=== PATIENT | female | born 1960 | race Caucasian/White ===

== ENCOUNTER 2022-09-03 11:36 | Inpatient (IN) | payer OTHER ==
[2022-09-03 12:24] LABS: SARS-CoV-2 Antigen Rapid Res Negative (Negative)
--- NOTE | 2022-09-03 15:05 | P.HP ---
Certification for Inpatient Patient admitted to: Inpatient Patient will require the following post-hospital care: None Practitioner: I am a practitioner with admitting privileges, knowledge of patient current condition, hospital course, and medical plan of care. Services: Services provided to patient in accordance with Admission requirements found in Title 42 Section 412.3 of the Code of Federal Regulations Patient History Date of Service: 09/03/22 Primary Care Provider: Barry Puga Reason for admission: chf exacerbation History of Present Illness: Patient is an office patient of Angelita Puga. The patient has a history of chf, atrial fib, htn, and hypothyroidism. She had come to office a week ago. She has gained 48 lbs since February. Despite being on entresto and lasix. Labs were ordered. The patients creatine had risen from 1 to 1.5. She has poor energy and sob on exertion. The physical exam was difficulty Could not hear any crepitations,. However her body habitus makes for difficult exam. Given the above factors she was admitted for diuresis Allergies No Known Allergies Allergy (Verified 09/03/22 13:53) Home Medications: Amiodarone HCl [Cordarone Tab] 200 mg PO DAILY 09/03/22 Apixaban [Eliquis] 5 mg PO BID 09/03/22 Atorvastatin Calcium 20 mg PO DAILY AFTER SUPPER 09/03/22 Furosemide 40 mg PO BID 09/03/22 Meloxicam 15 mg PO DAILY 09/03/22 Metoprolol Succinate [Toprol Xl] 100 mg PO DAILY 09/03/22 Nabumetone 500 mg PO BID 09/03/22 Nystatin [Nystop] 30 gm TOP TID PRN 09/03/22 Potassium Chloride 20 meq PO DAILY 09/03/22 Sacubitril/Valsartan [Entresto 49 mg-51 mg Tablet] 1 tab PO BID 09/03/22 Silver Sulfadiazine [Silvadene 1% Cream] 1 appl TOP BID 09/03/22 methIMAzole [Tapazole*] 2 tab PO DAILY 09/03/22 - Past Medical/Surgical History Diabetic: No -: CHF -: Hypertension -: Graves disease -: Uterus ablation -: Cyst removal R breast - Family History Mother -: Diabetes, Cancer Notes: breast cancer Father -: Heart disease, Hypertension, Diabetes, Other (see notes) Notes: glaucoma, blind Brother -: Heart disease Notes: from heart attack - Social History Smoking Status: Never smoker Alcohol use: No CD- Drugs: No Caffeine use: Yes Place of Residence: Home Review of Systems 10-point ROS is otherwise unremarkable General: Malaise Respiratory: Shortness of Breath Physical Examination - Vital Signs Temperature: 97.8 F Blood Pressure: 126/58 Pulse: 76 Respirations: 18 Pulse Ox (%): 98 - Physical Exam General: Alert, In no apparent distress HEENT: Atraumatic, PERRLA, Mucous membr. moist/pink, EOMI, Sclerae nonicteric Neck: Supple, 2+ carotid pulse no bruit, No LAD, Without JVD or thyroid abnormality Respiratory: Clear to auscultation bilaterally, Normal air movement Cardiovascular: Regular rate/rhythm, Normal S1 S2 Gastrointestinal: Normal bowel sounds, No tenderness Musculoskeletal: No tenderness Integumentary: No rashes Neurological: Normal gait, Normal speech, Normal strength at 5/5 x4 extr, Normal tone, Normal affect Lymphatics: No axilla or inguinal lymphadenopathy Assessment and Plan - Problems (Diagnosis) (1) Acute exacerbation of CHF (congestive heart failure) Current Visit: Yes Status: Acute Plan: will admit her to the hospital. Start aggressive diuresis. consult cardiology and check an echocardiogram. Will need to monitor her creatine. The patient has after the last 6 months Qualifiers: Heart failure type: systolic Qualified Code(s): I50.23 - Acute on chronic systolic (congestive) heart failure (2) Atrial fibrillation Current Visit: Yes Status: Chronic Plan: Continue metoprolol. Will check tsh. She seems to be rate controlled Qualifiers: Atrial fibrillation type: paroxysmal Qualified Code(s): I48.0 - Paroxysmal atrial fibrillation (3) HTN (hypertension) Current Visit: Yes Status: Acute Plan: continue entresto and metoprolol. Adjust as necessary Qualifiers: Hypertension type: primary hypertension Qualified Code(s): I10 - Essential (primary) hypertension (4) Hyperthyroidism Current Visit: Yes Status: Acute Plan: Check tsh and thyroid labs. Continue metimazole (5) Acute renal failure Current Visit: Yes Status: Acute Plan: Most likely prerenal due to diurseis. Will continue her lasix. however may need to consult nephrology Qualifiers: Acute renal failure type: unspecified Qualified Code(s): N17.9 - Acute kidney failure, unspecified Discharge Plan: Home Plan to discharge in: 48 Hours - Advance Directives Does patient have a Living Will: No Does patient have a Durable POA for Healthcare: No - Code Status/Comfort Care Code Status Assessed: No Code Status: Full Code Physician Review: Patient Assessed, Agree with Above Assessment and Plan Critical Care: No Time Spent Managing Pts Care (In Minutes): 55
[2022-09-03] MEDS ORDERED: INFLUENZA VACCINE (for 6+ mo) 0.5 ML DOSE IMVAC ONE (16:00)
[2022-09-03 16:47] LABS: Thyroid Stimulating Hormone 31.3 uIU/mL (0.360-3.740)
--- NOTE | 2022-09-03 17:26 | RAD REPORT ---
EXAM DESCRIPTION: RAD - Chest Pa And Lat (2 Views) - 09/03/2022 5:17 pm CLINICAL HISTORY: chf exacerbation COMPARISON: None TECHNIQUE: Frontal and lateral views of the chest were obtained. FINDINGS: The lungs are clear. Interstitial markings are mildly prominent. No abnormal vascular eng orgement seen. Hilar regions are not outside of normal range for body habitus. Heart size is upper no rmal to slightly enlarged. Pericardial fat pads are present. No pleural effusion or pneumothorax seen . No acute bony finding noted. No aortic abnormality. IMPRESSION: No peripheral mass or consolidation. No significant failure or volume overload finding seen.
[2022-09-03] MEDS: ENOXAPARIN 30 MG/0.3 ML SQ SCH (17:41)
[2022-09-03] MEDS: SACUBITRIL/VALSARTAN 49/51 MG TAB PO SCH (21:06)
[2022-09-04] MEDS: METOPROLOL XL 100 MG TAB PO SCH (06:16)
[2022-09-04 06:38] LABS: Absolute Lymphocytes (CBC) 2.2 K/uL (0.7-4.9); Hematocrit 34.7 % (36.0-45.0); Lymphocytes % 32.2 % (15.3-44.8); MCV 87.1 fL (80-100); MPV 9.4 fL (7.6-11.3); RBC Red Blood Cell Count 3.99 M/uL (3.86-4.86)
[2022-09-04 06:55] LABS: Bilirubin Total 0.6 mg/dL (0.2-1.0); Protein, Total 6.9 g/dL (6.4-8.2)
--- NOTE | 2022-09-04 08:52 | P.PN ---
Subjective Date of Service: 09/04/22 Primary Care Provider: Barry Puga Chief Complaint: chf exacerbation Subjective: No new changes Review of Systems 10-point ROS is otherwise unremarkable Physical Examination - Vital Signs Temperature: 97.7 F Blood Pressure: 111/57 Pulse: 68 Respirations: 17 Pulse Ox (%): 97 - Physical Exam General: Alert, In no apparent distress HEENT: Atraumatic, PERRLA, EOMI Neck: Supple, JVD not distended Respiratory: Clear to auscultation bilaterally, Normal air movement Cardiovascular: Regular rate/rhythm, Normal S1 S2 Gastrointestinal: Normal bowel sounds, No tenderness Musculoskeletal: No tenderness Integumentary: No rashes Neurological: Normal speech, Normal tone, Normal affect Lymphatics: No axilla or inguinal lymphadenopathy - Studies Laboratory Data (last 24 hrs) 09/04/22 06:08: Sodium 139, Potassium 4.0, BUN 26 H, Creatinine 1.17, Glucose 104, Total Bilirubin 0.6, AST 12 L, ALT 15, Alkaline Phosphatase 111 09/04/22 06:08: WBC 6.80, Hgb 11.4 L, Hct 34.7 L, Plt Count 194 Assessment And Plan - Current Problems (Diagnosis) (1) Acute exacerbation of CHF (congestive heart failure) Current Visit: Yes Status: Acute Plan: will admit her to the hospital. Start aggressive diuresis. consult cardiology and check an echocardiogram. Will need to monitor her creatine. The patient has after the last 6 months Qualifiers: Heart failure type: systolic Qualified Code(s): I50.23 - Acute on chronic systolic (congestive) heart failure (2) Atrial fibrillation Current Visit: Yes Status: Chronic Plan: Continue metoprolol. Will check tsh. She seems to be rate controlled Qualifiers: Atrial fibrillation type: paroxysmal Qualified Code(s): I48.0 - Paroxysmal atrial fibrillation (3) HTN (hypertension) Current Visit: Yes Status: Acute Plan: continue entresto and metoprolol. Adjust as necessary Qualifiers: Hypertension type: primary hypertension Qualified Code(s): I10 - Essential (primary) hypertension (4) Hyperthyroidism Current Visit: Yes Status: Acute Plan: Check tsh and thyroid labs. Continue metimazole (5) Acute renal failure Current Visit: Yes Status: Acute Plan: Most likely prerenal due to diurseis. Will continue her lasix. however may need to consult nephrology Qualifiers: Acute renal failure type: unspecified Qualified Code(s): N17.9 - Acute kidney failure, unspecified Discharge Plan: Home - Code Status/Comfort Care Code Status Assessed: No Physician Review: Patient Assessed, Agree with Above Assessment and Plan Critical Care: No Time Spent Managing PTS Care (In Minutes): 20
[2022-09-04] MEDS: SACUBITRIL/VALSARTAN 49/51 MG TAB PO SCH ×2 (09:16→21:34)
[2022-09-04] MEDS: FUROSEMIDE 40 MG/4 ML VIAL IV SCH (09:16)
[2022-09-04] MEDS: POTASSIUM CL SA 10 MEQ TAB PO SCH (09:16)
[2022-09-04 14:32] VITALS: BMI 61.7
[2022-09-04] MEDS: ENOXAPARIN 30 MG/0.3 ML SQ SCH (16:26)
[2022-09-05] MEDS: METOPROLOL XL 100 MG TAB PO SCH (05:05)
[2022-09-05 06:16] LABS: Absolute Lymphocytes (CBC) 1.8 K/uL (0.7-4.9); Hematocrit 35.6 % (36.0-45.0); Lymphocytes % 31.6 % (15.3-44.8); MCV 86.6 fL (80-100); RBC Red Blood Cell Count 4.11 M/uL (3.86-4.86)
[2022-09-05 06:37] LABS: Albumin 3.1 g/dL (3.4-5.0); Bilirubin Total 0.6 mg/dL (0.2-1.0); Potassium 4.1 mmol/L (3.5-5.1)
--- NOTE | 2022-09-05 07:40 | P.PN ---
Subjective Date of Service: 09/05/22 Primary Care Provider: Barry Puga Chief Complaint: chf exacerbation Subjective: Improving (negative fluid balance of 3200ml) Review of Systems 10-point ROS is otherwise unremarkable Respiratory: SOB with Excertion Physical Examination - Vital Signs Temperature: 96.9 F Blood Pressure: 110/60 Pulse: 75 Respirations: 16 Pulse Ox (%): 96 - Physical Exam General: Alert, In no apparent distress HEENT: Atraumatic, PERRLA, EOMI Neck: Supple, JVD not distended Respiratory: Clear to auscultation bilaterally, Normal air movement Cardiovascular: Regular rate/rhythm, Normal S1 S2 Gastrointestinal: Normal bowel sounds, No tenderness Musculoskeletal: No tenderness Integumentary: No rashes Neurological: Normal speech, Normal tone, Normal affect Lymphatics: No axilla or inguinal lymphadenopathy - Studies Laboratory Data (last 24 hrs) 09/05/22 05:53: Magnesium 2.0 09/05/22 05:53: Sodium 137, Potassium 4.1, BUN 23 H, Creatinine 1.24 H, Glucose 93, Total Bilirubin 0.6, AST 12 L, ALT 14, Alkaline Phosphatase 109 09/05/22 05:53: WBC 5.80, Hgb 11.5 L, Hct 35.6 L, Plt Count 198 Assessment And Plan - Current Problems (Diagnosis) (1) Acute exacerbation of CHF (congestive heart failure) Current Visit: Yes Status: Acute Plan: will admit her to the hospital. Start aggressive diuresis. consult cardiology and check an echocardiogram. Will need to monitor her creatine. The patient has after the last 6 months 09/05 Patient is improving. Will continue diuresis Qualifiers: Heart failure type: systolic Qualified Code(s): I50.23 - Acute on chronic systolic (congestive) heart failure (2) Atrial fibrillation Current Visit: Yes Status: Chronic Plan: Continue metoprolol. Will check tsh. She seems to be rate controlled Qualifiers: Atrial fibrillation type: paroxysmal Qualified Code(s): I48.0 - Paroxysmal atrial fibrillation (3) HTN (hypertension) Current Visit: Yes Status: Acute Plan: continue entresto and metoprolol. Adjust as necessary Qualifiers: Hypertension type: primary hypertension Qualified Code(s): I10 - Essential (primary) hypertension (4) Hyperthyroidism Current Visit: Yes Status: Acute Plan: Check tsh and thyroid labs. Continue metimazole 09/05 tsh and t4 are low will hold meitmazole. Will need to recheck as an out patient (5) Acute renal failure Current Visit: Yes Status: Acute Plan: Most likely prerenal due to diurseis. Will continue her lasix. however may need to consult nephrology 09/05 creatine had recovered. Slowly trending up. Will continue lasix 80mg for today and decrease to 40mg tomorrow Qualifiers: Acute renal failure type: unspecified Qualified Code(s): N17.9 - Acute kidney failure, unspecified Discharge Plan: Home Plan to discharge in: 48 Hours - Code Status/Comfort Care Code Status Assessed: No Physician Review: Patient Assessed, Agree with Above Assessment and Plan Critical Care: No Time Spent Managing PTS Care (In Minutes): 20
--- NOTE | 2022-09-05 07:47 | ECHO ---
HEIGHT: 5 ft 6 in WEIGHT: 377 lb 1.6 oz DATE OF STUDY: 09/04/[address]: Nicko Mathias MD 2-DIMENSIONAL: YES M.MODE: YES DOPPLER: YES COLOR FLOW: YES TDS: YES PORTABLE: YES DEFINITY: BUBBLE STUDY: DIAGNOSIS: CONGESTIVE HEART FAILURE EXACERBATION CARDIAC HISTORY: CATHERIZATION: NO SURGERY: NO PROSTHETIC VALVE: NO PACEMAKER: NO MEASUREMENTS (cm) DIASTOLIC (NORMALS) SYSTOLIC (NORMALS) IVSd 1.3 (0.6-1.2) LA Diam 4.4 (1.9-4.0) LVEF % LVIDd 4.7 (3.5-5.7) LVIDs 3.3 (2.0-3.5) %FS % LVPWd 1.3 (0.6-1.2) Ao Diam 3.3 (2.0-3.7) 2 DIMENSIONAL ASSESSMENT: RIGHT ATRIUM: NOT WELL SEEN LEFT ATRIUM: ENLARGED RIGHT VENTRICLE: NOT WELL SEEN LEFT VENTRICLE: NORMAL TRICUSPID VALVE: MILD TRICUSPID REGURGITATION MITRAL VALVE: MILD MITRAL REGURGITATION PULMONIC VALVE: MILD PULMONIC INSUFFICIENCY AORTIC VALVE: NORMAL PERICARDIAL EFFUSION: NONE AORTIC ROOT: NORMAL LEFT VENTRICULAR WALL MOTION: UNABLE TO EVALUATE DOPPLER/COLOR FLOW: SEE BELOW COMMENTS: 1. VERY LIMITED EXAM DUE TO POOR WINDOWS 2. LEFT ATRIAL ENLARGEMENT 3. UNABLE TO ACCURATELY EVALUATE LEFT VENTRICULAR EJECTION FRACTION OR WALL MOTION (RECOMMEND CONTRAST ECHOCARDIOGRAM) 4. UNABLE TO SEE THE RIGHT HEART WALL 5. MILD MITRAL REGURGITATION, TRICUSPID REGURGITATION, PULMONIC INSUFFICIENCY TECHNOLOGIST: CANDIDO POSADA
[2022-09-05] MEDS: FUROSEMIDE 40 MG/4 ML VIAL IV SCH ×2 (09:00→09:57)
[2022-09-05] MEDS: POTASSIUM CL SA 10 MEQ TAB PO SCH (09:56)
[2022-09-05] MEDS: SACUBITRIL/VALSARTAN 49/51 MG TAB PO SCH ×2 (09:56→21:11)
[2022-09-05] MEDS: ENOXAPARIN 30 MG/0.3 ML SQ SCH (17:43)
[2022-09-05 18:03] VITALS: O2SAT 97
[2022-09-06] MEDS: METOPROLOL XL 100 MG TAB PO SCH (06:03)
[2022-09-06 06:08] LABS: Absolute Lymphocytes (CBC) 1.5 K/uL (0.7-4.9); Hematocrit 37.3 % (36.0-45.0); Lymphocytes % 25.1 % (15.3-44.8); MCV 86.6 fL (80-100); MPV 9.2 fL (7.6-11.3)
[2022-09-06 06:23] LABS: Albumin 3.3 g/dL (3.4-5.0); Bilirubin Total 0.6 mg/dL (0.2-1.0); Protein, Total 7.7 g/dL (6.4-8.2)
[2022-09-06] MEDS: POTASSIUM CL SA 10 MEQ TAB PO SCH (09:38)
[2022-09-06] MEDS: SACUBITRIL/VALSARTAN 49/51 MG TAB PO SCH (09:38)
[2022-09-06] MEDS: FUROSEMIDE 40 MG/4 ML VIAL IV SCH (09:38)
--- NOTE | 2022-09-06 11:39 | P.PN ---
Subjective Date of Service: 09/06/22 Primary Care Provider: Barry Puga Chief Complaint: chf exacerbation Subjective: Improving (diuresed approx 5 lts.) Review of Systems 10-point ROS is otherwise unremarkable Physical Examination - Vital Signs Temperature: 97.3 F Blood Pressure: 106/59 Pulse: 72 Respirations: 16 Pulse Ox (%): 98 - Physical Exam General: Alert, In no apparent distress HEENT: Atraumatic, PERRLA, EOMI Neck: Supple, JVD not distended Respiratory: Clear to auscultation bilaterally, Normal air movement Cardiovascular: Regular rate/rhythm, Normal S1 S2 Gastrointestinal: Normal bowel sounds, No tenderness Musculoskeletal: No tenderness Integumentary: No rashes Neurological: Normal speech, Normal tone, Normal affect Lymphatics: No axilla or inguinal lymphadenopathy - Studies Laboratory Data (last 24 hrs) 09/06/22 05:52: Sodium 136, Potassium 4.0, BUN 29 H, Creatinine 1.35 H, Glucose 102, Total Bilirubin 0.6, AST 18, ALT 19, Alkaline Phosphatase 119 H 09/06/22 05:52: WBC 6.10, Hgb 12.2, Hct 37.3, Plt Count 219 Assessment And Plan - Current Problems (Diagnosis) (1) Acute exacerbation of CHF (congestive heart failure) Current Visit: Yes Status: Acute Plan: will admit her to the hospital. Start aggressive diuresis. consult cardiology and check an echocardiogram. Will need to monitor her creatine. The patient has after the last 6 months 09/06 Patient is improving. decreased the lasix due to elevated creatine. Not as concerning. Will keep her one more day Qualifiers: Heart failure type: systolic Qualified Code(s): I50.23 - Acute on chronic systolic (congestive) heart failure (2) Atrial fibrillation Current Visit: Yes Status: Chronic Plan: Continue metoprolol. Will check tsh. She seems to be rate controlled Qualifiers: Atrial fibrillation type: paroxysmal Qualified Code(s): I48.0 - Paroxysmal atrial fibrillation (3) HTN (hypertension) Current Visit: Yes Status: Acute Plan: continue entresto and metoprolol. Adjust as necessary Qualifiers: Hypertension type: primary hypertension Qualified Code(s): I10 - Essential (primary) hypertension (4) Hyperthyroidism Current Visit: Yes Status: Acute Plan: Check tsh and thyroid labs. Continue metimazole 09/05 tsh and t4 are low will hold meitmazole. Will need to recheck as an out patient (5) Acute renal failure Current Visit: Yes Status: Acute Plan: Most likely prerenal due to diurseis. Will continue her lasix. however may need to consult nephrology 09/06 hold lasix for tomorrow Qualifiers: Acute renal failure type: unspecified Qualified Code(s): N17.9 - Acute kidney failure, unspecified Discharge Plan: Home Plan to discharge in: 24 Hours - Code Status/Comfort Care Code Status Assessed: No Physician Review: Patient Assessed, Agree with Above Assessment and Plan Critical Care: No Time Spent Managing PTS Care (In Minutes): 20
--- NOTE | 2022-09-06 12:18 | P.DS ---
Admission Date: 09/03/22 Discharge Date: 09/06/22 Primary Care Provider: Barry Puga Disposition: ROUTINE DISCHARGE Discharge Condition: GOOD Reason for Admission: chf exacerbation - Problems (1) Acute exacerbation of CHF (congestive heart failure) Current Visit: Yes Status: Acute Qualifiers: Heart failure type: systolic Qualified Code(s): I50.23 - Acute on chronic systolic (congestive) heart failure (2) Atrial fibrillation Current Visit: Yes Status: Chronic Qualifiers: Atrial fibrillation type: paroxysmal Qualified Code(s): I48.0 - Paroxysmal atrial fibrillation (3) HTN (hypertension) Current Visit: Yes Status: Acute Qualifiers: Hypertension type: primary hypertension Qualified Code(s): I10 - Essential (primary) hypertension (4) Hyperthyroidism Current Visit: Yes Status: Acute (5) Acute renal failure Current Visit: Yes Status: Acute Qualifiers: Acute renal failure type: unspecified Qualified Code(s): N17.9 - Acute kidney failure, unspecified Brief History of Present Illness: Patient is an office patient of Angelita Puga. The patient has a history of chf, atrial fib, htn, and hypothyroidism. She had come to office a week ago. She has gained 48 lbs since February. Despite being on entresto and lasix. Labs were ordered. The patients creatine had risen from 1 to 1.5. She has poor energy and sob on exertion. The physical exam was difficulty Could not hear any crepitations,. However her body habitus makes for difficult exam. Given the above factors she was admitted for diuresis Hospital Course: Patient was admitted for diuresis. She had a echocardiogram. However quality was too poor to make an accurate evaluation. The patient was diuresis approx 5- 6 lts. weight went down 16 lbs. She is feeling well and would like to go home to her . Her creatine went from 1.17 to 1.35. Will have her hold 1 dose of furosemide and restart on Thursday. Will also have her hold the metimazole. Her tsh and t4 were suppressed. Would also need her to follow up in a week when we can test a thyroid panel and a creatine. Vital Signs/Physical Exam: Temp Pulse Resp BP Pulse Ox 97.3 F 72 16 106/59 L 98 09/06/22 11:38 09/06/22 11:38 09/06/22 11:38 09/06/22 11:38 09/06/22 11:38 General: Alert, In no apparent distress HEENT: Atraumatic, PERRLA, EOMI Neck: Supple, JVD not distended Respiratory: Clear to auscultation bilaterally, Normal air movement Cardiovascular: Regular rate/rhythm, Normal S1 S2 Gastrointestinal: Normal bowel sounds, No tenderness Musculoskeletal: No tenderness Integumentary: No rashes Neurological: Normal speech, Normal tone, Normal affect Lymphatics: No axilla or inguinal lymphadenopathy Laboratory Data at Discharge: WBC 6.10 K/uL (4.3-10.9) 09/06/22 05:52 Hgb 12.2 g/dL (12.0-15.0) 09/06/22 05:52 Hct 37.3 % (36.0-45.0) 09/06/22 05:52 Plt Count 219 K/uL (152-406) 09/06/22 05:52 Sodium 136 mmol/L (136-145) 09/06/22 05:52 Potassium 4.0 mmol/L (3.5-5.1) 09/06/22 05:52 BUN 29 mg/dL (7-18) H 09/06/22 05:52 Creatinine 1.35 mg/dL (0.55-1.02) H 09/06/22 05:52 Glucose 102 mg/dL (74-106) 09/06/22 05:52 Magnesium 2.0 mg/dL (1.6-2.4) 09/05/22 05:53 Total Bilirubin 0.6 mg/dL (0.2-1.0) 09/06/22 05:52 AST 18 U/L (15-37) 09/06/22 05:52 ALT 19 U/L (13-56) 09/06/22 05:52 Alkaline Phosphatase 119 U/L (45-117) H 09/06/22 05:52 Home Medications: Amiodarone HCl [Cordarone Tab] 200 mg PO DAILY 09/03/22 Apixaban [Eliquis] 5 mg PO BID 09/03/22 Metoprolol Succinate [Toprol Xl] 100 mg PO DAILY 09/03/22 Nystatin [Nystop] 30 gm TOP TID PRN 09/03/22 RX: Atorvastatin Calcium 20 mg PO DAILY AFTER SUPPER 09/03/22 RX: Furosemide 40 mg PO BID 09/03/22 RX: Meloxicam 15 mg PO DAILY 09/03/22 RX: Nabumetone 500 mg PO BID 09/03/22 RX: Potassium Chloride 20 meq PO DAILY 09/03/22 RX: Sacubitril/Valsartan [Entresto 49 mg-51 mg Tablet] 1 tab PO BID 09/03/22 RX: methIMAzole [Tapazole*] 2 tab PO DAILY 09/03/22 Silver Sulfadiazine [Silvadene 1% Cream] 1 appl TOP BID 09/03/22 Diet: AHA Activity: hold Thursday dose of Furosemide. Restart on Thursday. Followup: Nicko Mathias MD [Family Provider] - 1 Week Time spent managing pt's care (in minutes): 30
[2022-09-06 12:23] VITALS: BP 108/62; TEMP 97.7
--- NOTE | 2022-09-09 12:21 | CON ---
Date of Consultation: 09/03/2022 Reason For Consultation: Congestive heart failure. History Of Present Illness: Ms. Anaya is a patient, who sees Dr. Stew Rodriguez's office. She has a history of congestive heart failure, atrial fibrillation, hypertension, hypothyroidism, c onesimo in with significant weight gain and worsening creatinine from 1 to 1.5, dyspnea on exertion, poor appetite and fatigue. Did not have any nausea, vomiting, diaphoresis. Denied any chest pain or syn cope. Denied any palpitation, but has had PND, orthopnea and pedal edema. Past Medical History: As stated above. Allergies: NONE. Medications: At home include amiodarone, Eliquis, Lipitor, Lasix 40 mg b.i.d., meloxicam, metoprolol , nystatin, potassium, Entresto. Review of Systems: Negative. Social History: Negative. Family History: Noncontributory. Physical Examination: Vital Signs: Stable. She was afebrile. She weighed 382 pounds. HEENT: Negative. Neck: Supple with no bruit, lymphadenopathy, JVD, or thyromegaly. Chest: Reveals rales both bases. Cardiac: Revealed regular rhythm and rate with S3 gallops. No murmurs or rubs. Abdomen: Obese, but benign. Extremities: Revealed no clubbing, cyanosis. She has significant edema. Laboratory Data: Creatinine is 1.17. Hemoglobin is 11.4. Assessment And Plan: Presently on Lovenox, Lasix, metoprolol, Entresto, and methimazole. We certain ly cannot increase the Entresto dose because of renal insufficiency. She is on the right medications including Lasix and metoprolol. Another echocardiogram is pending. I agree with Dr. Mathias's assess ment and plan and regimen. We will continue to follow her. NB/MODL Voice ID: [id number] Report ID: [id number]
== END 2022-09-06 13:51 | disposition home or self-care (01) | DRG 291 ==
LOC: 2ND 13:07
PROVIDERS: ADMIT Internal Medicine; ATTEND Internal Medicine
DX: I11.0 Hypertensive heart disease with heart failure (principal); I50.23 Acute on chronic systolic (congestive) heart failure; N17.9 Acute kidney failure, unspecified; I48.0 Paroxysmal atrial fibrillation; E05.00 Thyrotoxicosis with diffuse goiter without thyrotoxic crisis or storm; Z20.822 Contact with and (suspected) exposure to COVID-19; Z79.01 Long term (current) use of anticoagulants; Z79.899 Other long term (current) drug therapy; Z83.3 Family history of diabetes mellitus; Z80.3 Family history of malignant neoplasm of breast; Z82.49 Family history of ischemic heart disease and other diseases of the circulatory system; Z83.511 Family history of glaucoma; Z82.1 Family history of blindness and visual loss
CPT/HCPCS: 36415; 71046; 80053; 83735; 84439; 84443; 85025; 87811; 93306; 97116; 97161; 97530; J1650; J1940